=== PATIENT | female | born 1980 | race Asian ===

== ENCOUNTER 2016-07-16 20:16 | Emergency (ER) | payer OTHER ==
[2016-07-16] MEDS ORDERED: TOPAMAX (20:34)
[2016-07-16] MEDS ORDERED: VYVANSE (20:34)
[2016-07-16] MEDS ORDERED: LAMICTAL (20:34)
[2016-07-16] MEDS ORDERED: PANTOPRAZOLE (20:35)
== END 2016-07-16 22:04 ==
LOC: EDMED 20:16
DX: S31.133A Puncture wound of abdominal wall without foreign body, right lower quadrant without penetration into peritoneal cavity, initial encounter (principal); F32.9 Major depressive disorder, single episode, unspecified; F41.9 Anxiety disorder, unspecified; Z23 Encounter for immunization; W27.2XXA Contact with scissors, initial encounter